=== PATIENT | female | born 1965 | race Caucasian/White ===

== ENCOUNTER 2025-09-20 16:03 | Outpatient (OUT) | payer OTHER, SELFPAY ==
--- NOTE | 2025-09-20 16:07 | MM_ITS ---
Patient Name: ANDRÉS BUSTAMANTE MR#: [id number] : 1965 Exam Date: 09/20/2025 Ordering Doctor: DR MARY ELLEN LAUREN RADIOLOGY REPORT PROCEDURE: MM TOMOSYNTHESIS SCREENING BI COMPARISON: MM TOMOSYNTHESIS SCREENING BI, 06/28/2024. MM TOMOSYNTHESIS SCREENING BI, 06/11/2023. MM TOMOSYNTHESIS SCREENING BI, 12/06/2020. INDICATIONS: Screening for malignant neoplasm Calculator Name NCI Breast Cancer Risk Assessment Tool 5 Year Breast Cancer Risk 1.30% Lifetime Breast Cancer Risk 6.60% Personal Breast Cancer No Personal Ovarian Cancer No Treatments None Family Cancers Brother with prostate cancer at age 52; Grandfather-paternal with lung cancer at age 80; Grandmother-maternal with colon cancer at age 85. LOCATION: [facility] BREAST COMPOSITION: There are scattered areas of fibroglandular density. FINDINGS: RIGHT BREAST: No significant suspicious finding. LEFT BREAST: No significant suspicious finding. Benign-appearing lymph nodes are noted along the left chest wall. DIAGNOSTIC CATEGORY 1--NEGATIVE. NO CHANGE FROM COMPARISON ASSESSMENT. RECOMMENDATIONS: ROUTINE MAMMOGRAM AND CLINICAL EVALUATION IN 12 MONTHS. Dictated by: Collin Brandon MD on 09/21/2025 at 07:44 Approved by: Collin Brandon MD on 09/21/2025 at 07:57
--- OUTSIDE RECORDS SUMMARY | 2025-09-20 16:07 | XMS_ITS | Clinical Summary ---
Author Organization [facility] Address [address] [place] [address] Care Team Providers Care Custody Officer Name Role Phone Unavailable Primary Care Provider Unavailabl e Social History Tobacco UseTypesPacks/DayYears UsedDateSmoking Tobacco: Never Assessed CommentsUnknownSex and Gender InformationValueDate RecordedSex Assigned at Not on fileLegal XfzUaisgv86/15/2023 9:44 PM EDTGender IdentityNot on fileSexual OrientationNot on file Plan of Treatment Not on file
== END 2025-09-20 16:04 | disposition home or self-care (01) ==
LOC: MAMMO 16:04
PROVIDERS: PCP Obstetrics & Gynecology; Visit Provider Internal Medicine
DX: Z12.31 Encounter for screening mammogram for malignant neoplasm of breast (principal); Z80.0 Family history of malignant neoplasm of digestive organs; Z80.1 Family history of malignant neoplasm of trachea, bronchus and lung; Z80.42 Family history of malignant neoplasm of prostate
CPT/HCPCS: 77063; 77067